=== PATIENT | male | born 1960 | race Two or more races ===

== ENCOUNTER 2021-05-20 03:39 | Emergency (ER) | payer BC, OTHER ==
[~2021-05-20] VITALS: Ht 170.2 cm; Wt 69.9 kg
[~2021-05-20 03:39] MED LIST: IBU600T; MIRT1TAB; NOR10T; SUMA5SPR; ZOLP5TAB
[2021-05-20 04:06] VITALS: BP 125/78
[2021-05-20 04:19] LABS: Basophils # (auto) 0.1 10 ^3/uL (0-0.2); Basophils % (auto) 1.2 % (0.0-2.0); Eosinophils # (auto) 0.2 10 ^3/uL (0-0.8); Eosinophils % (auto) 3.1 % (0.0-7.0); Hematocrit 42.2 % (41.0-53.0); Hemoglobin 14.8 g/dL (13.5-17.5); Lymphocytes # (auto) 1.3 10 ^3/uL (0.4-5.4); Lymphocytes % (auto) 19.4 % (10.0-50.0); Mean Corpuscular Hemoglobin 31.4 pg (28.0-32.0); Mean Corpuscular Hgb Conc. 35.1 g/dL (32.0-36.0); Mean Corpuscular Volume 89.4 fL (80.0-100.0); Monocytes # (auto) 0.6 10 ^3/uL (0-1.3); Monocytes % (auto) 9.6 % (0.0-12.0); Neutrophils # (auto) 4.4 10 ^3/uL (1.6-8.6); Neutrophils % (auto) 66.7 % (37.0-80.0); Nucleated Red Blood Cells % 0.1 %; Red Blood Cells 4.72 10^6/uL (4.5-5.90); Red Cell Distribution Width 13.5 % (11.8-14.3); White Blood Cell 6.6 10^3/uL (4.4-10.8)
[2021-05-20 04:37] LABS: Albumin 3.4 g/dL (3.4-5.0); Potassium 4.4 mmol/L (3.5-5.1)
[2021-05-20 04:42] LABS: Bilirubin, Total 0.4 mg/dL (0.2-1.0); Total Protein 7.3 g/dL (6.4-8.2)
[2021-05-20] MEDS ORDERED: OXYCODONE W/ ACETAMINOPHEN 5/325MG TABLET PO ONE (05:15)
[2021-05-20] MEDS ORDERED: DexAMETHasone SOD PHOS 10MG/1ML VIAL INJ IM ONE (05:15)
[2021-05-20] MEDS ORDERED: IBUPROFEN 600 MG TAB PO ONE (05:30)
[2021-05-20] MEDS ORDERED: PERCOT PO (05:42)
[2021-05-25] MEDS ORDERED: PERCOT PO (13:32)
== END 2021-05-20 06:54 | disposition home or self-care (01) ==
LOC: ER 03:39
DX: S16.1XXA Strain of muscle, fascia and tendon at neck level, initial encounter (principal); X58.XXXA Exposure to other specified factors, initial encounter; Y93.89 Activity, other specified; Y92.89 Other specified places as the place of occurrence of the external cause; Y99.8 Other external cause status
CPT/HCPCS: 36415; 71045; 72125; 80053; 84484; 85025; 93005; 96372; 99285; J1100